=== PATIENT | male | born 1945 | race Caucasian/White ===

== ENCOUNTER 2022-07-12 02:34 | Outpatient (CLI) | payer MEDICARE, BC, SELFPAY | END 2022-07-12 02:35 | disposition home or self-care (01) | LOC: AMB 07-14 11:24 | PROVIDERS: Visit Provider Family Medicine | DX: R55 Syncope and collapse (principal) | CPT/HCPCS: A0425; A0427 ==

== ENCOUNTER 2022-07-12 03:11 | Emergency (ER) | payer MEDICARE, BC, SELFPAY ==
[2022-07-12] VITALS (9 sets, daily range): BP systolic 115–125; BP diastolic 64–74; PULSE 51–61; RESP 16; TEMP 35.5–36.6; O2SAT 93–98
[2022-07-12] MEDS: 0.9 % SODIUM CHLORIDE 1000 ml 1,000 ML IV (03:31)
--- NOTE | 2022-07-12 05:02 | ED_ITS ---
HPI - General Adult General Chief complaint: Hypotension Stated complaint: hypotension Time Seen by Provider: 07/12/22 03:13 History of Present Illness HPI narrative: 36-year-old man brought to the emergency department after syncopal event. Does have a history of vasovagal events. had gotten up to urinate and while urinating was starting to feel lightheaded. No chest pain. Does not report a arrhythmia or tachycardia. Try to get back to the bedroom on the bed. He did make it to the bed where he passed out. noted he was stiff as has been with prior episodes. Was apparently rather diaphoretic. Apparently police could not locate a pulse neither could spouse. EMS noted severe bradycardia and hypotension upon there arrival which has steadily improved. Mr. Bowman arrives noting that he feels better. Still a little nauseated. I do not know that he threw up. Has at least 3 of these events prior which have been worked up and deemed vasovagal episodes. One episode spouse notes in particular was around medicines being monkeyed with. Mr. Bowman does take carvedilol. Is also anticoagulated with apixaban with a history of atrial fibrillation. Did have a cardiac echo which was deemed quite good end of May of this last year; less than one month ago. Denies a history of cardiovascular disease. Past Medical History: Medical Problems: Hyperlipidemia Abdominal pain Hypertension Body mass index 30+ - obesity Lumbar Fracture OBSTRUCTIVE SLEEP APNEA (ADULT) (PEDIATRIC) R Fibular Fracture Syncope Atrial fibrillation Bradycardia Related Data Home Medications Medication Instructions Recorded Confirmed allopurinol 100 mg tablet mg 07/12/22 allopurinol 300 mg tablet mg 07/12/22 amlodipine 5 mg tablet mg 07/12/22 apixaban 5 mg tablet (Eliquis) 5 mg PO BID 07/12/22 07/12/22 carvedilol 12.5 mg tablet mg 07/12/22 chlorthalidone 25 mg tablet mg 07/12/22 lisinopril 40 mg tablet mg 07/12/22 rosuvastatin 10 mg tablet (Crestor) 10 mg PO DAILY 07/12/22 07/12/22 Allergies Allergy/AdvReac Type Severity Reaction Status Date / Time No Known Drug Allergies Allergy Verified 07/12/22 03:24 Review of Systems Status of ROS: Reports: 10 or more systems reviewed and unremarkable except as noted in History and below PFSH PFSH Social History Smoking Status: Former smoker Do you use any of these nicotine containing products: None How often do you have a drink containing alcohol: never AUDIT-C Alcohol total score: 0 Non-prescribed substance use: denies use Exam Narrative: Exam Narrative: Very pleasant. Arriving by EMS does look a little bit woods/pale. Clammy. Fully alert. A little distracted. No nystagmus. Well-perfused peripherally. Breathing easily. Head is atraumatic. Neck appears to be nontender, supple. Lungs are clear. Heart is with bradycardia appears to be in a regular rhythm. Cranial nerves 2-12 look to be intact. Moving all extremities without difficulty. There is no lower extremity edema. Abdomen is soft and nontender. Overweight. Const: Vital Signs, click to edit/add: Vital Signs - 24 hr 07/12/22 03:20 07/12/22 03:25 07/12/22 03:42 Temperature 96 F L Pulse Rate 59 L Pulse Rate [Left P ulse Oximeter] 51 L Pulse Rate [orthos tatic lying Right Pulse Oximeter] 52 L Pulse Rate [orthos tatic sitting Righ t Pulse Oximeter] 59 L Pulse Rate [orthos tatic standing Rig ht Pulse Oximeter] 61 Respiratory Rate 16 16 Blood Pressure 116/64 Blood Pressure [Ri ght Upper Arm] 116/69 Blood Pressure [or thostatic lying Le ft Arm] 122/70 Blood Pressure [or thostatic sitting Left Arm] 115/69 Blood Pressure [or thostatic standing Left Arm] 116/64 Pulse Oximetry 98 97 07/12/22 04:02 07/12/22 04:32 07/12/22 05:01 Temperature Pulse Rate 58 L 61 61 Pulse Rate [Left P ulse Oximeter] Pulse Rate [orthos tatic lying Right Pulse Oximeter] Pulse Rate [orthos tatic sitting Righ t Pulse Oximeter] Pulse Rate [orthos tatic standing Rig ht Pulse Oximeter] Respiratory Rate 16 16 16 Blood Pressure 124/71 122/73 120/74 Blood Pressure [Ri ght Upper Arm] Blood Pressure [or thostatic lying Le ft Arm] Blood Pressure [or thostatic sitting Left Arm] Blood Pressure [or thostatic standing Left Arm] Pulse Oximetry 98 97 97 07/12/22 05:32 07/12/22 04:15 07/12/22 06:23 Temperature 97.9 F 97.9 F Pulse Rate 58 L Pulse Rate [Left P ulse Oximeter] 51 L Pulse Rate [orthos tatic lying Right Pulse Oximeter] Pulse Rate [orthos tatic sitting Righ t Pulse Oximeter] Pulse Rate [orthos tatic standing Rig ht Pulse Oximeter] Respiratory Rate 16 16 Blood Pressure 125/74 Blood Pressure [Ri ght Upper Arm] 116/69 Blood Pressure [or thostatic lying Le ft Arm] Blood Pressure [or thostatic sitting Left Arm] Blood Pressure [or thostatic standing Left Arm] Pulse Oximetry 93 Documenting provider has reviewed patient's vital signs: yes Course Vital Signs Vital signs: Initial Vital Signs Temperature 96 F L 07/12/22 03:20 Temperature Source Temporal Artery Scan 07/12/22 03:20 Pulse Rate 51 L 07/12/22 03:20 Respiratory Rate 16 07/12/22 03:20 Blood Pressure 116/69 07/12/22 03:20 Blood Pressure Mean 84 07/12/22 03:20 Blood Pressure Position Supine 07/12/22 03:20 Pulse Oximetry 98 07/12/22 03:20 Vital Signs Temperature 96 F L 07/12/22 03:20 Pulse Rate 51 L 07/12/22 03:20 Respiratory Rate 16 07/12/22 03:20 Blood Pressure 116/69 07/12/22 03:20 Pulse Oximetry 98 07/12/22 03:20 Temperature 97.9 F 07/12/22 06:23 Pulse Rate 51 L 07/12/22 06:23 Respiratory Rate 16 07/12/22 06:23 Blood Pressure 116/69 07/12/22 06:23 Pulse Oximetry 93 07/12/22 05:32 Medical Decision Making MDM Narrative Medical decision making narrative: IV is placed. Placed on janitor head during time in the emergency department. No events. Receives a L of normal saline. We did discussed degree of workup given repeated and extensive evaluation that has already occurred. This was considered as receiving treatment. Continued to improve. Color improved markedly. Still with a slight sense of nausea. We did later draw a troponin which was zeros. Orthostatics during time in the emergency department were normal and [place] with asymptomatic with them. He feels well enough ultimately, while offered further evaluation just feels he wants to go home at this point. Apparently had been on atenolol in the past which is contributing to too much bradycardia. Is on 4 antihypertensives. Perhaps needs to reassess beta- dunia. I do not see history of RVR; only hypertension and atrial fibrillation. Lab Data Labs: Lab Results 07/12/22 Range/Units 05:45 POC Troponin I 0.00 L (0.01-0.04) ng/ml ECG Data Attestation: I personally reviewed and interpreted this ECG as follows: (Sinus bradycardia rate of 50. right bundle-branch block) Discharge Plan Discharge Clinical Impression: Orthostatic hypotension, Syncope Patient Disposition: Home w/ Parent or Adult Condition: Improved Additional Instructions: I think is fine to hold the carvedilol for couple of days even. I would talk to your game attendant to see what they would like you to do with it. Regardless, stay well hydrated drinking 2-3 L of water daily. Take good care and time with transitions. Sometimes we do need to initiate persons on stimulants. I don't know that you're at that point yet but might be discussed. Prescriptions: No Action carvedilol 12.5 mg tablet Label Comments: TAKE ONE TABLET BY MOUTH TWICE DAILY WITH MEALS chlorthalidone 25 mg tablet Label Comments: Take 1 tablet (25 mg total) by mouth daily. amlodipine 5 mg tablet Label Comments: TAKE ONE TABLET BY MOUTH ONE TIME DAILY allopurinol 100 mg tablet Label Comments: Take 2 tablets (200 mg total) by mouth 2 (two) times a day. allopurinol 300 mg tablet Label Comments: TAKE ONE TABLET BY MOUTH ONE TIME DAILY lisinopril 40 mg tablet Label Comments: Take 1 tablet (40 mg total) by mouth at bedtime. Eliquis 5 mg tablet 5 mg PO BID rosuvastatin [Crestor] 10 mg tablet 10 mg PO DAILY Follow Up/Referrals: Provider,Not a Local [Primary Care Provider] - Stand Alone Forms: [facility] Info Instructions
[2022-07-12] MEDS: 0.9 % SODIUM CHLORIDE 500 ML 500 ML 6000 ML IV (05:25)
== END 2022-07-12 06:24 | disposition home or self-care (01) ==
PROVIDERS: Emergency Provider Family Medicine
DX: I95.1 Orthostatic hypotension (principal)
CPT/HCPCS: 84484; 93005; 96360; 99283; 99284; J7030; J7120